=== PATIENT | male | born 1985 | race Two or more races ===

== ENCOUNTER 2023-07-25 12:49 | Emergency (ER) | payer OTHER ==
--- NOTE | 2023-07-25 14:02 | XR ---
EXAMINATION TYPE: XR chest 2V DATE OF EXAM: 07/25/2023 COMPARISON: 03/28/2011 TECHNIQUE: PA and lateral views submitted. HISTORY: Cough FINDINGS: The lungs are clear and there is no pneumothorax, pleural effusion, or focal pneumonia. Heart size normal and no overt failure. Osseous structures intact. Slight curvature of the spine. IMPRESSION: 1. No acute process.
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
[2023-07-25 15:55] VITALS: BP 132/79; PULSE 76; RESP 18; TEMP 97.4
== END 2023-07-25 15:20 | disposition home or self-care (01) ==
LOC: EC 12:49
DX: T54.2X1A Toxic effect of corrosive acids and acid-like substances, accidental (unintentional), initial encounter (principal); T59.4X1A Toxic effect of chlorine gas, accidental (unintentional), initial encounter; J68.3 Other acute and subacute respiratory conditions due to chemicals, gases, fumes and vapors; Z86.16 Personal history of COVID-19
CPT/HCPCS: 71046; 99284